=== PATIENT | male | born 1945 | race Caucasian/White ===

== ENCOUNTER 2016-12-06 08:20 | Emergency (ER) | payer OTHER ==
[2016-12-06 08:27] VITALS: RESP 16
--- NOTE | 2016-12-06 08:41 | EDPHY ---
H & P Stated Complaint: right lower back pain radiating to right scrotum Time Seen by Provider: 12/06/16 08:33 HPI/ROS: CHIEF COMPLAINT: Flank pain HISTORY OF PRESENT ILLNESS: Patient is a 71-year-old man with a history of kidney stones and diverticulitis who comes to the emergency department complaining of right flank pain that radiates to his groin. No testicular pain or swelling. No history of surgery. He has had nausea but no vomiting. He does not remember what his previous kidney stone felt like. He has not had any dysuria. His pain began about an hour ago after going to the bathroom. According to the medical records the patient also has a history of ascending aortic aneurysm he however denies this and states that he did have a small hole in his heart that was repaired many years ago but has never heard anything about his aorta. REVIEW OF SYSTEMS: Constitutional: denies: chills, fever, recent illness, recent injury EENTM: denies: blurred vision, double vision, nose congestion Respiratory: denies: cough, shortness of breath Cardiac: denies: chest pain, irregular heart rate, lightheadedness, palpitations Gastrointestinal/Abdominal: See HPI Genitourinary: denies: dysuria, frequency, hematuria, pain Musculoskeletal: denies: joint pain, muscle pain Skin: denies: lesions, rash, jaundice, bruising Neurological: denies: headache, numbness, paresthesia, tingling, dizziness, weakness Hematologic/Lymphatic: denies: blood clots, easy bleeding, easy bruising Immunologic/allergic: denies: HIV/AIDS, transplant EXAM: GENERAL: Well-appearing, well-nourished and in no acute distress. HEAD: Atraumatic, normocephalic. EYES: Pupils equal round and reactive to light, extraocular movements intact, sclera anicteric, conjunctiva are normal. ENT: TMs normal, nares patent, oropharynx clear without exudates. Moist mucous membranes. NECK: Normal range of motion, supple without lymphadenopathy or JVD. LUNGS: Breath sounds clear to auscultation bilaterally and equal. No wheezes rales or rhonchi. HEART: Regular rate and rhythm without murmurs, rubs or gallops. ABDOMEN: Soft, nontender, normoactive bowel sounds. No guarding, no rebound. No masses appreciated. : No testicular swelling or pain, no inguinal hernias appreciated, no erythema BACK: No CVA tenderness, no spinal tenderness, step-offs or deformities EXTREMITIES: Normal range of motion, no pitting or edema. No clubbing or cyanosis. NEUROLOGICAL: Cranial nerves II through XII grossly intact. Normal speech, normal gait. 5/5 strength, normal movement in all extremities, normal sensation PSYCH: Normal mood, normal affect. SKIN: Warm, dry, normal turgor, no visible rashes or lesions. Source: Patient Exam Limitations: No limitations - Personal History Current Tetanus Diphtheria and Acellular Pertussis (TDAP): Unsure - Medical/Surgical History Hx Asthma: No Hx Chronic Respiratory Disease: Yes Hx Diabetes: No Hx Cardiac Disease: Yes Hx Renal Disease: No Hx Cirrhosis: No Hx Alcoholism: No Hx HIV/AIDS: No Hx Splenectomy or Spleen Trauma: No Other PMH: SLEEP APNEA. ASCENDING AORTIC ANEURYSM. PULMONARY HTN. TIA. Kidney stones. - Family History Significant Family History: No pertinent family hx - Social History Smoking Status: Never smoked Alcohol Use: None Drug Use: None Constitutional: Initial Vital Signs Temperature (C) 36.6 C 12/06/16 08:21 Heart Rate 101 H 12/06/16 08:21 Respiratory Rate 16 12/06/16 08:21 Blood Pressure 187/109 H 12/06/16 08:21 O2 Sat (%) 98 12/06/16 08:21 O2 Delivery Mode Room Air Allergies/Adverse Reactions: levofloxacin [From Levaquin] Allergy (Severe, Verified 11/27/13 15:55) Other-Enter Comments adhesive Allergy (Intermediate, Verified 11/27/13 15:55) Rash neomycin [Neomycin] Allergy (Intermediate, Verified 11/27/13 15:55) Rash Penicillins Allergy (Unknown, Verified 11/27/13 15:55) adhesive tape Allergy (Intermediate, Uncoded 11/28/13 13:54) skin slough Home Medications: Medication Instructions Recorded Ascorbic Acid [Vitamin C] 1,000 mg PO DAILY 11/27/13 Beta-Carotene [Beta Carotene] 25,000 unit PO DAILY 11/27/13 Chelated Iron 27 mg PO DAILY 11/27/13 Cholecalciferol Vit D3 [Vitamin D3 1,000 units PO DAILY 11/27/13 1000 units (OTC)] Cyanocobalamin (Vitamin B-12) 5,000 mcg PO DAILY 11/27/13 [B-12] Folic Acid 0.8 mg PO DAILY 11/27/13 Gluc Gomez/Chondro Gomez A/Vit C/Mn 1 each PO DAILY 11/27/13 [Glucosamine 1,500 Complex Cap] Guaifenesin [Mucinex] 600 mg PO DAILY 11/27/13 Herbals/Supplements -Info Only 1 each PO AD 11/27/13 Ibuprofen [Motrin 200 mg (OTC)] 400 - 800 mg PO DAILY PRN 11/27/13 Multivitamins [Tab-A-Floyd] 1 each PO DAILY 11/27/13 Vitamin B Complex [Vitamin B 1 each PO DAILY 11/27/13 Complex (OTC)] Vitamin E 1,000 unit PO DAILY 11/27/13 Ketorolac Tromethamine [Toradol] 10 mg PO Q6H #16 tab 12/06/16 Ondansetron Odt [Zofran Odt 4 mg 4 mg PO Q4 PRN #20 tab 12/06/16 (RX)] Tamsulosin HCl [Flomax] 0.4 mg PO DAILY #10 cap 12/06/16 oxyCODONE/APAP 5/325 [Percocet 1 - 2 tab PO Q4H PRN #20 tab 12/06/16 5/325] Medical Decision Making - Diagnostics Imaging: Results: CT scan of the abdomen or pelvis was obtained. The results of the study are 5 mm right UPJ stone with several other stones in the kidney. The study was read by Dr. Penaloza. I viewed the images myself on the PACS system. ED Course/Re-evaluation: 10:25 a.m. we discussed the patient's test results. He is still having some pain. I will treat with Toradol. 11:30 a.m. the patient is doing better. I will prepare for discharge. We discussed indications for returning and follow-up with Urology. He sees Dr. Manoj Luevano. Differential Diagnosis: Partial list of the Differential diagnosis considered include but were not limited to; kidney stone, urinary tract infection and although unlikely based on the history and physical exam, I also considered hernia, appendicitis, diverticulitis. I discussed these differential diagnoses and the plan with the patient as well as the usual and expected course. The patient understands that the diagnosis is provisional and that in medicine we are not always correct and that further workup is often warranted. Usual and customary warnings were given. All of the patient's questions were answered. The patient was instructed to return to the emergency department should the symptoms at all worsen or return, otherwise to followup with the physician as we discussed. - Data Points Laboratory Results: Laboratory Results 12/06/16 08:49 12/06/16 08:49 12/06/16 12/06/16 08:49 08:35 WBC 4.70 10^3/uL (3.80-9.50) RBC 4.89 10^6/uL (4.40-6.38) Hgb 16.1 g/dL (13.7-17.5) Hct 45.8 % (40.0-51.0) MCV 93.7 fL (81.5-99.8) MCH 32.9 pg (27.9-34.1) MCHC 35.2 g/dL (32.4-36.7) RDW 12.7 % (11.5-15.2) Plt Count 208 10^3/uL (150-400) MPV 9.8 fL (8.7-11.7) Neut % (Auto) 73.2 % (39.3-74.2) Lymph % (Auto) 17.9 % (15.0-45.0) Hughes % (Auto) 6.0 % (4.5-13.0) Eos % (Auto) 2.1 % (0.6-7.6) Baso % (Auto) 0.4 % (0.3-1.7) Nucleat RBC Rel Count 0.0 % (0.0-0.2) Absolute Neuts (auto) 3.44 10^3/uL (1.70-6.50) Absolute Lymphs (auto) 0.84 L 10^3/uL (1.00-3.00) Absolute Monos (auto) 0.28 L 10^3/uL (0.30-0.80) Absolute Eos (auto) 0.10 10^3/uL (0.03-0.40) Absolute Basos (auto) 0.02 10^3/uL (0.02-0.10) Absolute Nucleated RBC 0.00 10^3/uL (0-0.01) Immature Gran % 0.4 % (0.0-1.1) Immature Gran # 0.02 10^3/uL (0.00-0.10) Sodium 143 mEq/L (134-144) Potassium 4.3 mEq/L (3.5-5.2) Chloride 108 mEq/L (97-110) Carbon Dioxide 24 mEq/l (22-31) Anion Gap 11 mEq/L (8-16) BUN 18 mg/dL (7-23) Creatinine 1.2 mg/dL (0.7-1.3) Estimated GFR 60 Glucose 113 H mg/dL (70-100) Calcium 9.2 mg/dL (8.5-10.4) Total Bilirubin 0.9 mg/dL (0.1-1.4) Conjugated Bilirubin 0.4 mg/dL (0.0-0.5) Unconjugated Bilirubin 0.5 mg/dL (0.0-1.1) AST 44 IU/L (17-59) ALT 46 IU/L (21-72) Alkaline Phosphatase 86 IU/L (38-126) Total Protein 7.0 g/dL (6.3-8.2) Albumin 4.3 g/dL (3.5-5.0) Lipase 81.0 IU/L (23-300) Urine Color YELLOW Urine Appearance HAZY Urine pH 5.0 (5.0-7.5) Ur Specific Pledger 1.015 (1.002-1.030) Urine Protein NEGATIVE (NEGATIVE) Urine Ketones NEGATIVE (NEGATIVE) Urine Blood 2+ H (NEGATIVE) Urine Nitrate NEGATIVE (NEGATIVE) Urine Bilirubin NEGATIVE (NEGATIVE) Urine Urobilinogen NEGATIVE EU (0.2-1.0) Ur Leukocyte Esterase NEGATIVE (NEGATIVE) Urine RBC 50-182 H /hpf (0-3) Urine WBC 1-3 /hpf (0-3) Ur Epithelial Cells TRACE /lpf (NONE-1+) Urine Glucose NEGATIVE (NEGATIVE) Medications Given: Discontinued Medications Hydromorphone HCl (Dilaudid) 0.5 mg IVP EDNOW ONE Stop: 12/06/16 09:08 Last Admin: 12/06/16 09:34 Dose: 0.5 mg Sodium Chloride (Ns) 1,000 mls @ 0 mls/hr IV ONCE ONE PRN Reason: Wide Open Stop: 12/06/16 09:08 Last Admin: 12/06/16 09:13 Dose: 1,000 mls Ketorolac Tromethamine (Toradol) 30 mg IVP EDNOW ONE Stop: 12/06/16 10:25 Last Admin: 12/06/16 10:40 Dose: 30 mg Ondansetron HCl (Zofran) 4 mg IVP EDNOW ONE Stop: 12/06/16 09:08 Last Admin: 12/06/16 09:12 Dose: 4 mg Tamsulosin HCl (Flomax) 0.4 mg PO EDNOW ONE Stop: 12/06/16 10:26 Last Admin: 12/06/16 10:40 Dose: 0.4 mg Departure - Departure Disposition: Home, Routine, Self-Care Clinical Impression: Calculus of right kidney Condition: Fair Instructions: Kidney Stones (ED) Referrals: David Luevano MD [Medical Doctor] - As per Instructions Prescriptions: Tamsulosin HCl [Flomax] 0.4 mg PO DAILY #10 cap oxyCODONE/APAP 5/325 [Percocet 5/325] 1 - 2 tab PO Q4H PRN #20 tab PRN Reason: Pain, Severe Ketorolac Tromethamine [Toradol] 10 mg PO Q6H #16 tab Ondansetron Odt [Zofran Odt 4 mg (RX)] 4 mg PO Q4 PRN #20 tab PRN Reason: Nausea & Vomiting
[2016-12-06 08:52] LABS: COLOR YELLOW; LEUKOCYTE ESTERASE,URINE NEGATIVE (NEGATIVE); NITRITE,URINE NEGATIVE (NEGATIVE)
[2016-12-06 08:59] LABS: RBC,URINE 50-182 /hpf (0-3)
[2016-12-06] MEDS ORDERED: ONDANSETRON 4 MG/2 ML VIAL ONE (09:01)
[2016-12-06] MEDS ORDERED: ONDANSETRON 4 MG/2 ML VIAL IVP ONE (09:07)
[2016-12-06] MEDS ORDERED: NS 1,000 ML IV ONE (09:07)
[2016-12-06] MEDS ORDERED: HYDROmorphONE/DILAUDID 1 MG/ML SYR IVP ONE (09:07)
[2016-12-06 09:50] LABS: % IMMATURE GRANULYOCYTES 0.4 % (0.0-1.1); ABSOLUTE IMMATURE GRANULOCYTES 0.02 10^3/uL (0.00-0.10); ADD DIFF? NO; ADD MORPH? NO; ADD SCAN? NO; ATYPICAL LYMPHOCYTE FLAG 0 (0-99); FRAGMENT RBC FLAG 0 (0-99); HEMATOCRIT 45.8 % (40.0-51.0); HEMOGLOBIN 16.1 g/dL (13.7-17.5); LEFT SHIFT FLG 0 (0-99); LIPEMIA HEMOLYSIS FLAG 90 (0-99); MEAN CELL HEMOGLOBIN 32.9 pg (27.9-34.1); MEAN CELL HEMOGLOBIN CONCENTR. 35.2 g/dL (32.4-36.7); MEAN CELL VOLUME 93.7 fL (81.5-99.8); MEAN PLATELET VOLUME 9.8 fL (8.7-11.7); PLATELET CLUMPS FLAG 0 (0-99); PLATELET COUNT 208 10^3/uL (150-400); RED BLOOD CELL COUNT 4.89 10^6/uL (4.40-6.38); RED CELL DISTRIBUTION WIDTH 12.7 % (11.5-15.2)
[2016-12-06 10:06] LABS: ALANINE AMINOTRANSFERASE 46 IU/L (21-72); ALBUMIN 4.3 g/dL (3.5-5.0); ALKALINE PHOSPHATASE 86 IU/L (38-126); ANION GAP 11 mEq/L (8-16); ASPARTATE AMINOTRANSFERASE 44 IU/L (17-59); BILIRUBIN,TOTAL 0.9 mg/dL (0.1-1.4); BILIRUBIN-CONJUGATED 0.4 mg/dL (0.0-0.5); BILIRUBIN-UNCONJUGATED 0.5 mg/dL (0.0-1.1); CALCIUM 9.2 mg/dL (8.5-10.4); CARBON DIOXIDE 24 mEq/l (22-31); CHLORIDE 108 mEq/L (97-110); CREATININE 1.2 mg/dL (0.7-1.3); GLOMERULAR FILTRATION RATE 60; GLUCOSE 113 mg/dL (70-100); POTASSIUM 4.3 mEq/L (3.5-5.2); SODIUM 143 mEq/L (134-144)
--- NOTE | 2016-12-06 10:22 | CT ---
CT Abdomen and Pelvis Unenhanced (Renal Stone Protocol) Indication: Right-sided flank pain. History of stones. Comparison: CT abdomen and pelvis September 09, 2013. Technique: Axial unenhanced CT imaging was performed through the abdomen and pelvis without contrast . Dose reduction techniques were utilized. Findings: Abdomen: Scattered granulomas are present. Mild basilar atelectasis is noted. Atrial septal closure d evice is suspected. Coronary artery atherosclerosis is noted in the RCA. There is probable mild fatty infiltration of the liver. The gallbladder, spleen, pancreas, and adrena ls are normal. A 5 mm stone is present at the right ureteropelvic junction with mild hydronephrosis. Approximately five additional stones are present in the right kidney, measuring up to 3 mm. Three non obstructing stones in the left kidney measure up to 3 mm. Mild perinephric stranding is present, righ t greater than left. Multiple bilateral renal cysts are again noted, the largest extending from the i nferior pole of the left kidney, measuring 12 cm, not significantly changed. Multiple cysts have thin peripheral calcification, compatible with benign Bosniak category 2 cysts. There are tiny hypodensit ies too small to characterize, statistically likely to represent cysts. Moderate diverticulosis is present without evidence of diverticulitis. The colon and small bowel are normal caliber. The appendix is normal. There is no free fluid or air. A tiny fat-containing periumbilical hernia is present. The aorta is normal caliber with mild atherosclerosis. Degenerative change is present in the spine with stable mild retrolisthesis of L2 on L3. Pelvis: The prostate is upper normal in size. A small fat-containing right inguinal hernia is prese nt. No aggressive osseous lesions are present. Spina bifida occulta is noted in the sacrum. Impression: 1. 5-mm stone at the right ureteropelvic junction with mild obstructive uropathy. Slightly asymmetric perinephric stranding on the right could be related to forniceal rupture but is nonspecific. 2. Bilateral nephrolithiasis. 3. Bilateral Bosniak category 2 (benign) cysts. 4. Diverticulosis without evidence of diverticulitis. 5. Additional findings as above. Findings discussed with Gary Leung December 06, 2016, at 10:13 a.m. Attention: This CT examination is specifically designed to evaluate patients who are clinically susp ected of having acute obstructive uropathy. This examination does not use radiographic contrast, and as such, provides only a limited evaluation of the abdomen, pelvis and retroperitoneum. If there i s further clinical suspicion for pathological conditions other than obstructive uropathy, a complete CT evaluation of the abdomen and pelvis utilizing intravenous and oral contrast should be considered.
[2016-12-06] MEDS ORDERED: KETOROLAC 30 MG/1 ML SDV IVP ONE (10:24)
[2016-12-06] MEDS ORDERED: TAMSULOSIN HCL 0.4 MG CAP PO ONE (10:25)
[2016-12-06 11:45] VITALS: BP 135/93; PULSE 95; TEMP 97.7; O2SAT 91
== END 2016-12-06 11:49 | disposition home or self-care (01) ==
DX: N20.0 Calculus of kidney (principal); Z86.73 Personal history of transient ischemic attack (TIA), and cerebral infarction without residual deficits
CPT/HCPCS: 74176; 96374; 96375; 99285; J1170; J1885; J2405

== ENCOUNTER 2018-04-26 08:41 | Emergency (ER) | payer OTHER ==
[2018-04-26] MEDS ORDERED: NS 1,000 ML IV ONE (09:03)
--- NOTE | 2018-04-26 09:05 | EDPHY ---
H & P Stated Complaint: LLQ pain since this am Time Seen by Provider: 04/26/18 08:56 HPI/ROS: CHIEF COMPLAINT: Left flank pain HISTORY OF PRESENT ILLNESS: The patient is a 72-year-old man who comes to the emergency department complaining of intermittent sharp pain radiating from his left CVA to his left groin. He has a history of kidney stones but also has poor memory and states that he cannot remember if this feels similar. I saw him about a year ago for something similar on the right side. He denies other significant medical history although according to his record he has a history of diverticulitis as well as an atrial septal repair. No fever, no nausea vomiting. No lightheadedness or chest pain. REVIEW OF SYSTEMS: Constitutional: denies: chills, fever, recent illness, recent injury EENTM: denies: blurred vision, double vision, nose congestion Respiratory: denies: cough, shortness of breath Cardiac: denies: chest pain, irregular heart rate, lightheadedness, palpitations Gastrointestinal/Abdominal: denies: abdominal pain, diarrhea, nausea, vomiting, blood streaked stools Genitourinary: denies: dysuria, frequency, hematuria, pain Musculoskeletal: denies: joint pain, muscle pain Skin: denies: lesions, rash, jaundice, bruising Neurological: denies: headache, numbness, paresthesia, tingling, dizziness, weakness Hematologic/Lymphatic: denies: blood clots, easy bleeding, easy bruising Immunologic/allergic: denies: HIV/AIDS, transplant EXAM: GENERAL: Well-appearing, well-nourished and in no acute distress. HEAD: Atraumatic, normocephalic. EYES: Pupils equal round and reactive to light, extraocular movements intact, sclera anicteric, conjunctiva are normal. ENT: TMs normal, nares patent, oropharynx clear without exudates. Moist mucous membranes. NECK: Normal range of motion, supple without lymphadenopathy or JVD. LUNGS: Breath sounds clear to auscultation bilaterally and equal. No wheezes rales or rhonchi. HEART: Regular rate and rhythm without murmurs, rubs or gallops. ABDOMEN: Soft, nontender, normoactive bowel sounds. No guarding, no rebound. No masses appreciated. exam normal, no hernias palpated. BACK: No CVA tenderness, no spinal tenderness, step-offs or deformities EXTREMITIES: Normal range of motion, no pitting or edema. No clubbing or cyanosis. NEUROLOGICAL: Cranial nerves II through XII grossly intact. Normal speech, normal gait. 5/5 strength, normal movement in all extremities, normal sensation PSYCH: Normal mood, normal affect. SKIN: Warm, dry, normal turgor, no visible rashes or lesions. Source: Patient Exam Limitations: No limitations - Personal History Current Tetanus/Diphtheria Vaccine: Unsure Current Tetanus Diphtheria and Acellular Pertussis (TDAP): Unsure - Medical/Surgical History Hx Asthma: No Hx Chronic Respiratory Disease: Yes Hx Diabetes: No Hx Cardiac Disease: Yes Hx Renal Disease: No Hx Cirrhosis: No Hx Alcoholism: No Hx HIV/AIDS: No Hx Splenectomy or Spleen Trauma: No Other PMH: SLEEP APNEA. ASCENDING AORTIC ANEURYSM. PULMONARY HTN. TIA. Kidney stones. - Family History Significant Family History: No pertinent family hx - Social History Smoking Status: Never smoked Alcohol Use: None Drug Use: None Constitutional: Initial Vital Signs Temperature (C) 36.6 C 04/26/18 08:45 Heart Rate 97 04/26/18 08:45 Respiratory Rate 16 04/26/18 08:45 Blood Pressure 190/114 H 04/26/18 08:45 O2 Sat (%) 94 04/26/18 08:45 O2 Delivery Mode Room Air Allergies/Adverse Reactions: levofloxacin [From Levaquin] Allergy (Severe, Verified 11/27/13 15:55) Other-Enter Comments adhesive Allergy (Intermediate, Verified 11/27/13 15:55) Rash neomycin [Neomycin] Allergy (Intermediate, Verified 11/27/13 15:55) Rash Penicillins Allergy (Unknown, Verified 11/27/13 15:55) adhesive tape Allergy (Intermediate, Uncoded 11/28/13 13:54) skin slough Home Medications: Medication Instructions Recorded Ascorbic Acid [Vitamin C] 1,000 mg PO DAILY 11/27/13 Beta-Carotene [Beta Carotene] 25,000 unit PO DAILY 11/27/13 Chelated Iron 27 mg PO DAILY 11/27/13 Cholecalciferol Vit D3 [Vitamin D3 1,000 units PO DAILY 11/27/13 1000 units (OTC)] Cyanocobalamin (Vitamin B-12) 5,000 mcg PO DAILY 11/27/13 [B-12] Folic Acid 0.8 mg PO DAILY 11/27/13 Gluc Gomez/Chondro Gomez A/Vit C/Mn 1 each PO DAILY 11/27/13 [Glucosamine 1,500 Complex Cap] Herbals/Supplements -Info Only 1 each PO AD 11/27/13 Ibuprofen [Motrin 200 mg (OTC)] 400 - 800 mg PO DAILY PRN 11/27/13 Multivitamins [Tab-A-Floyd] 1 each PO DAILY 11/27/13 Vitamin B Complex [Vitamin B 1 each PO DAILY 11/27/13 Complex (OTC)] Vitamin E 1,000 unit PO DAILY 11/27/13 guaiFENesin [Mucinex] 600 mg PO DAILY 11/27/13 Ketorolac Tromethamine [Toradol] 10 mg PO Q6H #16 tab 12/06/16 Ondansetron Odt [Zofran Odt 4 mg 4 mg PO Q4 PRN #20 tab 12/06/16 (RX)] Tamsulosin HCl [Flomax] 0.4 mg PO DAILY #10 cap 12/06/16 oxyCODONE/APAP 5/325 [Percocet 1 - 2 tab PO Q4H PRN #20 tab 12/06/16 5/325] Ketorolac Tromethamine 10 mg PO Q6H PRN #16 tab 04/26/18 Tamsulosin HCl [Flomax] 0.4 mg PO DAILY #10 cap 04/26/18 Medical Decision Making - Diagnostics Imaging: Discussed imaging studies w/ scallop cutter machine Radiologist ED Course/Re-evaluation: 11:30 a.m. we discussed the CT results and lab results. The patient is reassured. He is now requesting a dose of Toradol. I will also give him prescription. He states that this worked very well for him last time but he would like to use sparingly so he does not run out again. He will follow again with his urologist. Discussed indications for returning. Differential Diagnosis: Partial list of the Differential diagnosis considered include but were not limited to; kidney stone, urine infection and although unlikely based on the history and physical exam, I also considered aneurysm, dissection, diverticulitis, hernia. I discussed these differential diagnoses and the plan with the patient as well as the usual and expected course. The patient understands that the diagnosis is provisional and that in medicine we are not always correct and that further workup is often warranted. Usual and customary warnings were given. All of the patient's questions were answered. The patient was instructed to return to the emergency department should the symptoms at all worsen or return, otherwise to followup with the physician as we discussed. - Data Points Laboratory Results: Laboratory Results 04/26/18 09:37 04/26/18 09:37 Medications Given: Discontinued Medications Sodium Chloride (Ns) 1,000 mls @ 0 mls/hr IV EDNOW ONE; Wide Open PRN Reason: Protocol Stop: 04/26/18 09:04 Last Admin: 04/26/18 09:39 Dose: 1,000 mls Ketorolac Tromethamine (Toradol) 30 mg IVP EDNOW ONE Stop: 04/26/18 11:37 Last Admin: 04/26/18 11:44 Dose: 30 mg Departure - Departure Disposition: Home, Routine, Self-Care Clinical Impression: Calculus of left kidney Condition: Fair Instructions: Kidney Stones (ED) Referrals: NONE *PRIMARY CARE P,. [Primary Care Provider] - As per Instructions David Luevano MD [Medical Doctor] - As per Instructions Prescriptions: Ketorolac Tromethamine 10 mg PO Q6H PRN #16 tab PRN Reason: Pain/inflammation Tamsulosin HCl [Flomax] 0.4 mg PO DAILY #10 cap
[2018-04-26 09:51] LABS: PLATELET COUNT 198 10^3/uL (150-400)
[2018-04-26 11:12] VITALS: BP 166/95
[2018-04-26] MEDS ORDERED: KETOROLAC 30 MG/1 ML SDV IVP ONE (11:36)
== END 2018-04-26 11:55 | disposition home or self-care (01) ==
DX: N20.0 Calculus of kidney (principal); E86.9 Volume depletion, unspecified
CPT/HCPCS: 74176; 96361; 96374; 99285; J1885

== ENCOUNTER 2018-07-26 05:38 | Day surgery (SDC) | payer OTHER ==
--- NOTE | 2018-07-25 21:59 | PDGENHP ---
History & Physical Chief Complaint: Right shoulder pain and impingement History of Present Illness: 78 yo male, rhd, presenting today for right shoulder pain, to undergo right shoulder scope, sub acromial decompression, debridement, distal clavicle excision by dr. lee Pertinent Past, Social, Family History: PMH: sleep apnea, HLD, HTN. PSH: Left TKA,. Allergies: adhesives, levaquin, neomycin, pennicillins,. SOC: denies rec drugs, denies smoking, occoasional ETOH Relevant Physical Exam: he has an obvious sd deformity of the biceps muscle belly, his ROM is symmetric with opposite side, strength intact to resisted ER and IR, negative speed's, negative Hawkin's, negative cross-body adduction, TTP bicipital groove and anterior greater tuberosity, no TTP AC joint, anterior/ posterior joint line, and posterior grater tuberosity, neurovascularity is grossly intact to a limited exam Cardiorespiratory Assessment: CVS: RRR, no m/r/g. RESP: CTAB, no w/r/r A/P Assessment: 73 yo RHD male, presenting for right shoulder surgery/scope/DCE/SAD/debridement , due to right shoulder pain, impingement by dr. lee
[2018-07-26] MEDS ORDERED: CLINDAMYCIN 900 MG/DEXTROSE 50 ML IV ONE (05:49)
[2018-07-26] MEDS ORDERED: LIDOCAINE 1% 2 ML INJ ID PRN (05:50)
[2018-07-26] MEDS ORDERED: LR 1,000 ML IV ONE (05:50)
--- NOTE | 2018-07-26 05:58 | POSTANESTH ---
Post Anesthetic Evaluation Cardiovascular Status: Normal, Stable Respiratory Status: Normal, Stable Level of Consciousness/Mental Status: Can Participate in Eval, Mildly Sleepy, Arousable Pain Control: Adequate, Prn Tx Ordered Nausea/Vomiting Control: Adequate, Prn Tx Ordered Complications Possibly Related to Anesthesia: None Noted
--- NOTE | 2018-07-26 06:01 | PDANEPAE ---
ANE History of Present Illness 73 yo male with shoulder pain and impingement for arthroscopy. ANE Past Medical History - Cardiovascular History Hx Hypertension: No Hx Arrhythmias: No Hx Chest Pain: No Hx Coronary Artery / Peripheral Vascular Disease: No Hx CHF / Valvular Disease: No Hx Palpitations: No Cardiovascular History Comment: PFO repaired in 2008. benign heart murmur - Pulmonary History Hx COPD: No Hx Asthma/Reactive Airway Disease: No Hx Recent Upper Respiratory Infection: No Hx Oxygen in Use at Home: Yes O2 in Use at Home (L/minute): 2.5 liters w/Cpap Hx Sleep Apnea: Yes Sleep Apnea Screening Result - Last Documented: Positive - Neurologic History Hx Cerebrovascular Accident: No Hx Seizures: No Hx Dementia: No Neurologic History Comment: suspected TIA in 2007 around time PFO was found, no residual deficits - Endocrine History Hx Diabetes: No Hypothyroid: No Hyperthyroid: No Obesity: no - Renal History Hx Renal Disorders: Yes Renal History Comment: lithotrypsy x 2, last in 11/2016. Had another stone in 2017 and passed on own. - Liver History Hx Hepatic Disorders: No - Neurological & Psychiatric Hx Hx Neurological and Psychiatric Disorders: No - Cancer History Hx Cancer: No - Congenital Disorder History Hx Congenital Disorders: Yes Congenital History Comment: PFO - GI History Hx Gastrointestinal Disorders: Yes Gastrointestinal History Comment: diverticulitis x2. normal colonoscopy - Other Health History Other Health History: osteoarthritis joints, neck. arms get numb when sleeps on side. mild ringing in ears. chipped tooth. wears glasses - Chronic Pain History Chronic Pain: No - Surgical History Prior Surgeries: left TKA 11/2013. lithotrypsy x 2. scope both knees. cardiac septal closure 2008 ANE Review of Systems Review of systems is: negative Review of Systems: - Exercise capacity METS (RN): 4 METS - Systems Muscolosketal: Reports: joint pain Neurological: Reports: paresthesia (L hand numbness and tingling - constant, secondary to cervical spinal stenosis, not worsened by head position changes) ANE Patient History - Allergies Allergies/Adverse Reactions: levofloxacin [From Levaquin] Allergy (Verified 07/09/18 11:00) UPPER LIP SWELLING neomycin [Neomycin] Allergy (Verified 07/09/18 11:00) Rash Penicillins Allergy (Verified 07/09/18 11:00) pt doesn't recall what the reaction is adhesive tape Allergy (Uncoded 07/09/18 11:00) skin slough, rash - Home Medications Home Medications: Ascorbic Acid [Vitamin C] 11/27/13 [Last Taken 11/20/13] Beta-Carotene [Beta Carotene] 11/27/13 [Last Taken 11/20/13] Chelated Iron 11/27/13 [Last Taken 11/20/13] Cholecalciferol Vit D3 [Vitamin D3 1000 units (OTC)] 11/27/13 [Last Taken 11/20] Cyanocobalamin (Vitamin B-12) [B-12] 11/27/13 [Last Taken 11/20/13] Folic Acid 11/27/13 [Last Taken 11/20/13] Gluc Gomez/Chondro Gomez A/Vit C/Mn [Glucosamine 1,500 Complex Cap] 11/27/13 [Last Taken 11/20/13] Herbals/Supplements -Info Only 11/27/13 [Last Taken 11/20/13] Ibuprofen [Motrin 200 mg (OTC)] DAILY PRN 11/27/13 [Last Taken 11/20/13] Multivitamins [Tab-A-Floyd] 11/27/13 [Last Taken 11/20/13] Vitamin B Complex [Vitamin B Complex (OTC)] 11/27/13 [Last Taken 11/20/13] Vitamin E 11/27/13 [Last Taken 11/20/13] Clindamycin PRN 07/09/18 [Last Taken Unknown] Tylenol 07/09/18 [Last Taken Unknown] - NPO status NPO Status: no food or drink >8 hours - Anes Hx Anes Hx: no prior problems - Smoking Hx Smoking Status: Never smoked - Alcohol Use Alcohol Use: Occasionally (4/week) - Family Anes Hx Family Anes Hx: neg - N/A Family Hx Anesthesia Complications: none ANE Labs/Vital Signs - Vital Signs Blood Pressure: 146/95 Heart Rate: 82 O2 Sat (%): 91 Height: 177.8 cm Weight: 86.183 kg ANE Physical Exam - Airway Neck exam: decreased ROM Mallampati Score: Class 2 - Pulmonary Pulmonary: reduced air movement, inspiratory crackles (fine end insp crackles, cleared with cough, suspect secondary to atelectasis) - Cardiovascular Cardiovascular: regular rate and rhythym, systolic murmur (1-2/ KVNG) - ASA Status ASA Status: II ANE Anesthesia Plan Anesthesia Plan: GA w LMA
[2018-07-26] MEDS ORDERED: EPINEPHrine 1 MG/ML INJ ONE ×2 (07:02→07:17)
[2018-07-26] MEDS ORDERED: LIDO/EPI 1% **for epidural** 30 ML SDV ONE (07:02)
[2018-07-26] MEDS ORDERED: BUPIVACAINE/EPI 0.5% 30 ML SDV ONE (07:02)
[2018-07-26] MEDS ORDERED: DEXAMETHASONE 4 MG/ML VIAL ONE (07:04)
[2018-07-26] MEDS ORDERED: PROPOFOL/EMULSION 500 MG/50 ML BOTTLE IV ONE (07:04)
[2018-07-26] MEDS ORDERED: LIDOCAINE 2% 2 ML INJ ONE (07:04)
[2018-07-26] MEDS ORDERED: fentaNYL 100 MCG/2 ML INJ ONE ×2 (07:04)
--- NOTE | 2018-07-26 07:08 | PDHPUP ---
History & Physical Update H&P update statement: This history and physical update is based on an assessment of the patient which was completed after admission or registration (within 24 hours), but prior to the surgery/procedure. H&P update: H&P reviewed & patient examined, no change in patient's condition since H&P completed
[2018-07-26] MEDS ORDERED: PHENYLEPHRINE HCL 100 MCG/ML SYR ONE (07:53)
[2018-07-26] MEDS ORDERED: PROPOFOL 200 MG/20 ML VIAL ONE ×2 (08:28)
[2018-07-26] MEDS ORDERED: KETOROLAC 30 MG/1 ML SDV ONE (09:02)
[2018-07-26] MEDS ORDERED: HYDROCODONE/APAP 5/325 TAB PO PRN (09:17)
[2018-07-26] MEDS ORDERED: fentaNYL 100 MCG/2 ML INJ IVP PRN (09:17)
[2018-07-26] MEDS ORDERED: ALBUTEROL 3 ML DEYVIAL IH PRN (09:17)
[2018-07-26] MEDS ORDERED: METOCLOPRAMIDE 10 MG/2 ML VIAL IVP PRN (09:17)
[2018-07-26] MEDS ORDERED: ONDANSETRON 4 MG/2 ML VIAL IVP PRN (09:17)
[2018-07-26] MEDS ORDERED: NALOXONE HCL 0.4 MG/ML INJ IVP PRN ×2 (09:17)
[2018-07-26] MEDS ORDERED: LR 500 ML IV PRN (09:17)
[2018-07-26] MEDS ORDERED: ACETAMINOPHEN 500 MG TAB PO PRN (09:17)
[2018-07-26] MEDS ORDERED: ACETAMINOPHEN 325 MG TAB PO PRN (09:42)
[2018-07-26] MEDS ORDERED: oxyCODONE IR 5 MG TAB PO PRN (09:42)
--- NOTE | 2018-07-26 09:46 | POSTOPPROG ---
Post Op Note Date of Operation: 07/26/18 Surgeon: Mihaela Harper Tie Puller: Melinda Reeves PA-C Anesthesia: LMA Pre-op Diagnosis: right shoulder pain and impingment Post-op Diagnosis: right shoulder pain and impingment Procedure: right shoulder scope, SAD/DCE/debridement Inf/Abcess present in the surg proc area at time of surgery?: No EBL: Minimal Complications: none
[2018-07-26 11:13] VITALS: BP 154/95
== END 2018-07-26 12:50 | disposition home or self-care (01) ==
LOC: FSGY 05:38
PROVIDERS: ATTEND Orthopaedic Surgery
PROC: 0MN14ZZ Release Right Shoulder Bursa and Ligament, Percutaneous Endoscopic Approach (ICD-10-PCS; principal; 2018-07-26 07:15)
PROC: 0RBJ4ZZ Excision of Right Shoulder Joint, Percutaneous Endoscopic Approach (ICD-10-PCS; principal; 2018-07-26 07:15)
DX: M25.811 Other specified joint disorders, right shoulder (principal); G47.30 Sleep apnea, unspecified; E78.5 Hyperlipidemia, unspecified; I10 Essential (primary) hypertension; Z96.652 Presence of left artificial knee joint
CPT/HCPCS: J0171; J1100; J1885; J2370; J2704; J3010

== ENCOUNTER → 2018-11-20 | Outpatient (CLI) | payer OTHER | LOC: FIMAGING 11:20 | PROVIDERS: ATTEND Registered Nurse | DX: J84.10 Pulmonary fibrosis, unspecified (principal); M54.9 Dorsalgia, unspecified ==